=== PATIENT | female | born 1985 | race Two or more races ===

== ENCOUNTER 2022-02-02 21:24 | Emergency (ER) | payer SELFPAY ==
[~2022-02-02] VITALS: Ht 165.1 cm; Wt 68.0 kg
[2022-02-02 23:17] LABS: Eosinophils # (auto) 0.1 10 ^3/uL (0-0.8); Monocytes # (auto) 0.5 10 ^3/uL (0-1.3); Nucleated Red Blood Cells % 0.6 %
[2022-02-02 23:20] LABS: Basophils # (auto) 0 10 ^3/uL (0-0.2); Basophils % (auto) 0.5 % (0.0-2.0); Hematocrit 20.1 % (36.0-46.0); Lymphocytes # (auto) 1.8 10 ^3/uL (0.4-5.4); Lymphocytes % (auto) 20.7 % (10.0-50.0); Mean Corpuscular Hemoglobin 17.5 pg (28.0-32.0); Mean Corpuscular Hgb Conc. 30.4 g/dL (32.0-36.0); Mean Corpuscular Volume 57.6 fL (80.0-100.0); Monocytes % (auto) 6.1 % (0.0-12.0); Neutrophils # (auto) 6.2 10 ^3/uL (1.6-8.6); Neutrophils % (auto) 71.7 % (37.0-80.0); Red Blood Cells 3.49 10^6/uL (4.0-5.20); Red Cell Distribution Width 18.3 % (11.8-14.3); White Blood Cell 8.7 10^3/uL (4.4-10.8)
[2022-02-02 23:29] LABS: Hemoglobin 6.1 g/dL (12.2-16.2)
[2022-02-02 23:37] LABS: Albumin 2.2 g/dL (3.4-5.0); Potassium 3.4 mmol/L (3.5-5.1)
[2022-02-02 23:38] VITALS: BP 98/54
[2022-02-02 23:38] LABS: Lactic Acid w/Reflex 2.2 mmol/L (0.4-2.0)
[2022-02-02 23:48] LABS: BUN/Creatinine Ratio 11.1; Bilirubin, Total 0.2 mg/dL (0.2-1.0); Total Protein 6.2 g/dL (6.4-8.2)
== END 2022-02-03 02:18 | disposition left against medical advice (07) ==
LOC: ER 21:24 → EDBD 21:24 → ER 02-03 02:18
DX: O26.893 Other specified pregnancy related conditions, third trimester (principal); R41.82 Altered mental status, unspecified; F20.9 Schizophrenia, unspecified; R07.89 Other chest pain; Z3A.33 33 weeks gestation of pregnancy; Z53.29 Procedure and treatment not carried out because of patient's decision for other reasons
CPT/HCPCS: 36415; 71045; 76805; 80053; 83605; 84484; 84702; 85025; 93005